=== PATIENT | female | born 1960 | race Hispanic/Latino ===

== ENCOUNTER → 2017-05-22 | Outpatient (CLI) | payer OTHER ==
--- NOTE | 2017-05-22 17:33 | Diagnostic Imaging Report ---
EXAM: Renal Ultrasound INDICATION: \S\ASYMPTOMATIC MICROSCOPIC HEMATURIA COMPARISON: Renal ultrasound dated 10/20/2016 TECHNIQUE: Transverse and longitudinal images of the kidneys and bladder were obtained. FINDINGS: Right Kidney: Size: 12.4 cm Echogenicity: Normal Parenchymal thickness: Normal Collecting system: No hydronephrosis Stones: None Cyst/Mass: None Left Kidney: Size: 9.6 cm Echogenicity: Normal Parenchymal thickness: Normal Collecting system: No hydronephrosis Stones: None Cyst/Mass: 2.8 x 2.9 x 2.7 cm hypoechoic inferior pole lesion, previously 3.4 x 3.4 x 3.3 cm. No detectable internal flow on color Doppler. Bladder: Unremarkable. IMPRESSION: Hypoechoic left inferior pole renal lesion has decreased in size when compared to ultrasound dated 10/20/2016. This lesion should be followed up with renal mass protocol CT or MRI. Signed by: Dr. Deangelo Fernandes MD on 05/22/2017 5:29 PM
== END ==
LOC: US 16:32
PROVIDERS: ATTEND Urology
DX: R31.9 Hematuria, unspecified (principal)
CPT/HCPCS: 76770